=== PATIENT | female | born 1990 | race African-American/Black ===

== ENCOUNTER 2016-09-26 10:13 | Emergency (ER) | payer OTHER ==
[~2016-09-26] VITALS: Ht 182.9 cm; Wt 109.1 kg
[2016-09-26] MEDS ORDERED: KETOROLAC TROMETHAMINE 60 MG/2 ML VIAL IM ONE (12:45)
[2016-09-26 13:15] VITALS: BP 124/83
== END 2016-09-26 13:48 | disposition home or self-care (01) ==
LOC: EMS 10:19
DX: S76.112A Strain of left quadriceps muscle, fascia and tendon, initial encounter (principal); Z88.0 Allergy status to penicillin; Z91.018 Allergy to other foods; X58.XXXA Exposure to other specified factors, initial encounter; Y93.89 Activity, other specified; Y92.89 Other specified places as the place of occurrence of the external cause; Y99.8 Other external cause status
CPT/HCPCS: 96372; 99283; J1885